=== PATIENT | female | born 1995 | race Caucasian/White ===

== ENCOUNTER 2022-06-13 01:07 | Emergency (ER) | payer OTHER, SELFPAY ==
[2022-06-13 01:13] VITALS: BP 140/93; PULSE 84; RESP 18; TEMP 36.4; O2SAT 97; BMI 27.7
--- NOTE | 2022-06-13 01:17 | CTR_ITS ---
PROCEDURE INFORMATION: Exam: CT Abdomen And Pelvis With Contrast Exam date and time: 06/13/2022 2:49 AM Age: 27 years old Clinical indication: Nausea and vomiting; Abdominal pain; Generalized; Patient HX: Diffuse abd pain with n/v. ; Additional info: Generalized abdominal pain, n/v TECHNIQUE: Imaging protocol: Computed tomography of the abdomen and pelvis with contrast. Radiation optimization: All CT scans at this facility use at least one of these dose optimization techniques: automated exposure control; mA and/or kV adjustment per patient size (includes targeted exams where dose is matched to clinical indication); or iterative reconstruction. Contrast material: OMNI 350; Contrast volume: 100 ml; Contrast route: INTRAVENOUS (IV); COMPARISON: No relevant prior studies available. RADIATION DOSE METRICS: Total DLP (mGy-cm): 386.63 FINDINGS: Lungs: The partially imaged lung bases are clear. Liver: No focal intrahepatic lesions are seen. Gallbladder and bile ducts: No gallbladder wall thickening. No calcified stones. No ductal dilation. Pancreas: No intraparenchymal lesions are seen. No ductal dilation. Spleen: No intraparenchymal lesions are seen. No splenomegaly. Adrenal glands: Normal. No mass. Kidneys and ureters: No solid intraparenchymal soft tissue lesion. No hydronephrosis. Stomach and bowel: No pathologic bowel dilatation. No obstruction. The snell of the distal ileum appear mildly thickened and there is subtle hyperenhancement of the mucosa. Appendix: No evidence of appendicitis. Intraperitoneal space: No free air. A small amount of free fluid is seen within the dependent portion the pelvis, likely physiologic. No abnormal walled-off fluid collection. Vasculature: No abdominal aortic aneurysm. Lymph nodes: Multiple prominent and mildly enlarged mesenteric lymph nodes most pronounced in the upper abdomen and right lower quadrant. Urinary bladder: Unremarkable as visualized. Reproductive: Right ovarian peripherally enhancing cyst measuring up to 1.8 cm in diameter is most compatible with a corpus luteal cyst. Bones/joints: No acute fracture. Soft tissues: Unremarkable. CT/CT abdomen pelvis w con* [id number] IMPRESSION: 1. The snell of the distal ileum appear mildly thickened and there are multiple prominent and mildly enlarged mesenteric lymph nodes. Findings are somewhat nonspecific but are suggestive of mesenteric adenitis and enteritis. Correlate and follow-up as clinically indicated. 2. Other chronic/incidental findings as described above.
--- NOTE | 2022-06-13 01:18 | ED_ITS ---
Documented by User: GÓMEZ Booker 06/13/22 17:38 HPI - Abdominal Pain General: Chief Complaint: Abdominal Pain Stated Complaint: ABD Pain Time Seen by Provider: 06/13/22 01:09 History of Present Illness: Patient is a 27-year-old female who comes to the ED with abdominal pain. Patient says she has been dealing with this kind of abdominal pain for the past couple months. She states that approximately 4 days ago the pain got a lot worse and more severe. Abdominal pain is generalized throughout her entire abdomen. Pain is rated a 7 out of 10. Pain radiates to her back as well. She endorses having nausea and vomiting and states that eating anything makes symptoms worse. She saw her primary care provider a couple days ago and they started her on some dicyclomine and omeprazole. Denies any dysuria, hematuria, fevers. Associated Symptoms: Reports nausea and vomiting; Denies chills, constipation, diarrhea, dysuria, fever(s), hematochezia and hematuria Review of Systems Const: Denies: fever(s), chills or fatigue Eyes: Denies: change in vision or eye discomfort ENMT: Denies: throat pain, odynophagia, nasal discharge or nasal congestion Card: Denies: chest pain, palpitations, edema, swelling of feet/ankles, dyspnea on exertion or orthopnea Resp: Denies: dyspnea, productive cough or non-productive cough GI: Reports: abdominal pain, nausea and vomiting; Denies: diarrhea, constipation or hematochezia : Denies: flank pain, dysuria or hematuria Musc: Denies: neck pain, back pain or extremity swelling Skin/Breast: Denies: rash or new lesions Neuro: Denies: headache(s), numbness in extremities or weakness in extremities [facility] ED PFSH: Medical History (Updated 06/13/22 @ 04:40 by Jaiden Veliz MD) No pertinent family history Surgical History (Updated 06/13/22 @ 01:22 by GÓMEZ Booker) No pertinent past surgical history Physical Exam Const: COMMON NORMALS: patient oriented x3 and alert GENERAL APPEARANCE: cooperative HENMT: COMMON NORMALS: normocephalic HEAD & SCALP: normocephalic MOUTH: Normal oral and palatal mucosa present THROAT: posterior oropharynx normal and uvula midline Neck/C-Spine: COMMON NORMALS: supple GENERAL: Yes normal visual inspection Resp: COMMON NORMALS: normal respiratory effort, No retractions, No use of accessory muscles and clear to auscultation bilaterally AUSCULTATION: clear to auscultation bilaterally Cardio: COMMON NORMALS: regular rate, regular rhythm, S1 normal heart sound present, S2 normal heart sound present, No gallops present (Cardio), No clicks present (Cardio), No murmurs present (Cardio) and Peripheral pulses 2+ throughout RATE: regular rate RHYTHM: regular rhythm HEART SOUNDS: S1 normal heart sound present and S2 normal heart sound present PERIPHERAL PULSES: Peripheral pulses 2+ throughout GI: COMMON NORMALS: Normal to inspection, nondistended, normoactive bowel sounds present, Soft to palpation and no masses PALPATION: Yes Soft to palpation and Yes Tenderness to palpation present (GI) (Generalized tenderness throughout) : COMMON NORMALS: Yes no CVA tenderness BLADDER/KIDNEY EXAM: Yes no CVA tenderness Back/Pelvis: COMMON NORMALS: no CVA tenderness Extremity: COMMON NORMALS: normal to inspection Neuro: COMMON NORMALS: patient oriented x3 SENSORIUM/ORIENTATION: Yes alert GAIT: Yes Normal gait present Skin: GENERAL SKIN EXAM: dry skin Course Vital Signs: Vital signs: Vital Signs Temperature 97.6 F 06/13/22 01:13 Pulse Rate 80 06/13/22 03:00 Respiratory Rate 16 06/13/22 03:00 Blood Pressure 122/74 06/13/22 03:00 Pulse Oximetry 96 06/13/22 03:00 Oxygen Delivery Me thod 06/13/22 01:13 MDM - Abdominal Pain Lab Data 06/13/22 01:35 06/13/22 01:57 Labs/Radiology: Radiology Impressions Abdomen/Pelvis CT 06/13/22 01:17 IMPRESSION: 1. The snell of the distal ileum appear mildly thickened and there are multiple prominent and mildly enlarged mesenteric lymph nodes. Findings are somewhat nonspecific but are suggestive of mesenteric adenitis and enteritis. Correlate and follow-up as clinically indicated. 2. Other chronic/incidental findings as described above. Laboratory Results WBC 6.8 10^3/uL (4.0-10.0) 06/13/22 01:35 RBC 4.24 10^6/uL (4.1-5.3) 06/13/22 01:35 Hgb 13.1 g/dL (11.5-15.3) 06/13/22 01:35 Hct 38.9 % (37.0-47.0) 06/13/22 01:35 MCV 91.7 fl (81-99) 06/13/22 01:35 MCH 30.9 pg (28.0-34.0) 06/13/22 01:35 MCHC 33.7 g/dL (30.0-36.0) 06/13/22 01:35 RDW 12.4 % (12.1-15.1) 06/13/22 01:35 Plt Count 256 10^3/cmm (130-400) 06/13/22 01:35 MPV 10.4 fL (7.4-10.4) 06/13/22 01:35 Neut % (Auto) 63.1 % 06/13/22 01:35 Lymph % (Auto) 27.2 % 06/13/22 01:35 [place] % (Auto) 7.5 % 06/13/22 01:35 Eos % (Auto) 1.6 % 06/13/22 01:35 Baso % (Auto) 0.3 % 06/13/22 01:35 Neut # (Auto) 4.31 10^3/uL (1.8-7.7) 06/13/22 01:35 Lymph # (Auto) 1.9 10^3/uL (0.8-4.8) 06/13/22 01:35 [place] # (Auto) 0.5 10^3/uL (0.2-0.9) 06/13/22 01:35 Eos # (Auto) 0.1 10^3/uL (0.0-0.8) 06/13/22 01:35 Baso # (Auto) 0.0 10^3/uL (0.0-0.1) 06/13/22 01:35 Nucleated RBC % (auto) 0 % 06/13/22 01:35 Nucleated RBCs # 0.0 /100WBC 06/13/22 01:35 Sodium 137 mmol/L (136-145) 06/13/22 01:57 Potassium 3.7 mmol/L (3.5-5.1) 06/13/22 01:57 Chloride 102 mmol/L (98-107) 06/13/22 01:57 Carbon Dioxide 21 mmol/L (22-29) L 06/13/22 01:57 Anion Gap 17.7 (5-19) 06/13/22 01:57 BUN 6 mg/dL (6-20) 06/13/22 01:57 Creatinine 0.6 mg/dL (0.5-0.9) 06/13/22 01:57 GFR Calculation 119.9 mL/min (90-130) 06/13/22 01:57 Glucose 92 mg/dL (65-115) 06/13/22 01:57 Calculated Osmolality 281 mOsm/kg (285-295) L 06/13/22 01:57 Calcium 8.8 mg/dL (8.5-10.5) 06/13/22 01:57 Total Bilirubin 0.2 mg/dL (0.15-1.2) 06/13/22 01:57 AST 18 U/L (0-32) 06/13/22 01:57 ALT 11 U/L (0-33) 06/13/22 01:57 Alkaline Phosphatase 64 U/L (35-105) 06/13/22 01:57 Total Protein 6.8 g/dL (6.6-8.7) 06/13/22 01:57 Albumin 4.0 g/dL (3.5-5.2) 06/13/22 01:57 Globulin 2.8 g/dL (1.3-4.6) 06/13/22 01:57 Lipase 20 U/L (13-60) 06/13/22 01:57 HCG, Qual Negative (Negative) 06/13/22 01:35 Urine Color Yellow (Yellow) 06/13/22 02:04 Urine Appearance Sl hazy (CLEAR) A 06/13/22 02:04 Urine pH 6 (5-7) 06/13/22 02:04 Ur Specific [place] 1.010 (1.005-1.030) 06/13/22 02:04 Urine Protein Neg (Negative) 06/13/22 02:04 Urine Glucose (UA) Norm (Normal) 06/13/22 02:04 Urine Ketones Negative (Negative) 06/13/22 02:04 Urine Blood Neg (Negative) 06/13/22 02:04 Urine Nitrate Negative (Negative) 06/13/22 02:04 Urine Bilirubin Neg (Negative) 06/13/22 02:04 Prot Sulfosalicylic Acd Negative (Negative) 06/13/22 02:04 Urine Urobilinogen Norm mg/dL (Negative) 06/13/22 02:04 Ur Leukocyte Esterase 2+ (Negative) H 06/13/22 02:04 Urine RBC 0-4 /hpf (0-2) H 06/13/22 02:04 Urine WBC Too numerous to cnt /hpf (0-5) H 06/13/22 02:04 Ur Squamous Epith Cells 15-25 /hpf (0-5) H 06/13/22 02:04 Amorphous Sediment Not Reportable 06/13/22 02:04 Urine Bacteria 2+ /hpf (NONE) H 06/13/22 02:04 Discharge Plan Discharge Patient Disposition: Home Clinical Impression: Abdominal pain Condition: Stable Prescriptions: New hydrocodone-acetaminophen 5-325 mg tablet 1 tab PO Q6H PRN (Reason: pain) Qty: 14 0RF ondansetron 4 mg tablet,disintegrating 4 mg PO Q6H PRN (Reason: nausea and vomiting) Qty: 14 0RF Discharge Orders: Discharge ED (Routine); Ordered 06/13/22 Ordered By: Jaiden Veliz Discharge Diet: Advance as tolerated Discharge Activity: Resume usual activity Patient Instructions: Abdominal Pain (ED) Coding Level of Care Code ED Pipe Line Maintenance Supervisor for Chg Fwd Exam Comprehensive Documented by User: Jaiden Veliz MD 06/13/22 04:42 HPI - Abdominal Pain General: Chief Complaint: Abdominal Pain Stated Complaint: ABD Pain Time Seen by Provider: 06/13/22 01:09 [facility] ED PFSH: Medical History (Updated 06/13/22 @ 04:40 by Jaiden Veliz MD) No pertinent family history Surgical History (Updated 06/13/22 @ 01:22 by GÓMEZ Booker) No pertinent past surgical history Course Vital Signs: Vital signs: Vital Signs Temperature 97.6 F 06/13/22 01:13 Pulse Rate 80 06/13/22 03:00 Respiratory Rate 16 06/13/22 03:00 Blood Pressure 122/74 06/13/22 03:00 Pulse Oximetry 96 06/13/22 03:00 Oxygen Delivery Me thod 06/13/22 01:13 MDM - Abdominal Pain Medical Decision Making Patient presented with abdominal pain along with nausea she is well-appearing here blood works normal CT scan shows mesenteric lymphadenitis likely causing her pain she is pain-free at discharge we will prescribe her pain meds and nausea medicine she is to follow-up with PCP and return if worsening. Lab Data 06/13/22 01:35 06/13/22 01:57 Labs/Radiology: Radiology Impressions Abdomen/Pelvis CT 06/13/22 01:17 IMPRESSION: 1. The snell of the distal ileum appear mildly thickened and there are multiple prominent and mildly enlarged mesenteric lymph nodes. Findings are somewhat nonspecific but are suggestive of mesenteric adenitis and enteritis. Correlate and follow-up as clinically indicated. 2. Other chronic/incidental findings as described above. Laboratory Results WBC 6.8 10^3/uL (4.0-10.0) 06/13/22 01:35 RBC 4.24 10^6/uL (4.1-5.3) 06/13/22 01:35 Hgb 13.1 g/dL (11.5-15.3) 06/13/22 01:35 Hct 38.9 % (37.0-47.0) 06/13/22 01:35 MCV 91.7 fl (81-99) 06/13/22 01:35 MCH 30.9 pg (28.0-34.0) 06/13/22 01:35 MCHC 33.7 g/dL (30.0-36.0) 06/13/22 01:35 RDW 12.4 % (12.1-15.1) 06/13/22 01:35 Plt Count 256 10^3/cmm (130-400) 06/13/22 01:35 MPV 10.4 fL (7.4-10.4) 06/13/22 01:35 Neut % (Auto) 63.1 % 06/13/22 01:35 Lymph % (Auto) 27.2 % 06/13/22 01:35 [place] % (Auto) 7.5 % 06/13/22 01:35 Eos % (Auto) 1.6 % 06/13/22 01:35 Baso % (Auto) 0.3 % 06/13/22 01:35 Neut # (Auto) 4.31 10^3/uL (1.8-7.7) 06/13/22 01:35 Lymph # (Auto) 1.9 10^3/uL (0.8-4.8) 06/13/22 01:35 [place] # (Auto) 0.5 10^3/uL (0.2-0.9) 06/13/22 01:35 Eos # (Auto) 0.1 10^3/uL (0.0-0.8) 06/13/22 01:35 Baso # (Auto) 0.0 10^3/uL (0.0-0.1) 06/13/22 01:35 Nucleated RBC % (auto) 0 % 06/13/22 01:35 Nucleated RBCs # 0.0 /100WBC 06/13/22 01:35 Sodium 137 mmol/L (136-145) 06/13/22 01:57 Potassium 3.7 mmol/L (3.5-5.1) 06/13/22 01:57 Chloride 102 mmol/L (98-107) 06/13/22 01:57 Carbon Dioxide 21 mmol/L (22-29) L 06/13/22 01:57 Anion Gap 17.7 (5-19) 06/13/22 01:57 BUN 6 mg/dL (6-20) 06/13/22 01:57 Creatinine 0.6 mg/dL (0.5-0.9) 06/13/22 01:57 GFR Calculation 119.9 mL/min (90-130) 06/13/22 01:57 Glucose 92 mg/dL (65-115) 06/13/22 01:57 Calculated Osmolality 281 mOsm/kg (285-295) L 06/13/22 01:57 Calcium 8.8 mg/dL (8.5-10.5) 06/13/22 01:57 Total Bilirubin 0.2 mg/dL (0.15-1.2) 06/13/22 01:57 AST 18 U/L (0-32) 06/13/22 01:57 ALT 11 U/L (0-33) 06/13/22 01:57 Alkaline Phosphatase 64 U/L (35-105) 06/13/22 01:57 Total Protein 6.8 g/dL (6.6-8.7) 06/13/22 01:57 Albumin 4.0 g/dL (3.5-5.2) 06/13/22 01:57 Globulin 2.8 g/dL (1.3-4.6) 06/13/22 01:57 Lipase 20 U/L (13-60) 06/13/22 01:57 HCG, Qual Negative (Negative) 06/13/22 01:35 Urine Color Yellow (Yellow) 06/13/22 02:04 Urine Appearance Sl hazy (CLEAR) A 06/13/22 02:04 Urine pH 6 (5-7) 06/13/22 02:04 Ur Specific [place] 1.010 (1.005-1.030) 06/13/22 02:04 Urine Protein Neg (Negative) 06/13/22 02:04 Urine Glucose (UA) Norm (Normal) 06/13/22 02:04 Urine Ketones Negative (Negative) 06/13/22 02:04 Urine Blood Neg (Negative) 06/13/22 02:04 Urine Nitrate Negative (Negative) 06/13/22 02:04 Urine Bilirubin Neg (Negative) 06/13/22 02:04 Prot Sulfosalicylic Acd Negative (Negative) 06/13/22 02:04 Urine Urobilinogen Norm mg/dL (Negative) 06/13/22 02:04 Ur Leukocyte Esterase 2+ (Negative) H 06/13/22 02:04 Urine RBC 0-4 /hpf (0-2) H 06/13/22 02:04 Urine WBC Too numerous to cnt /hpf (0-5) H 06/13/22 02:04 Ur Squamous Epith Cells 15-25 /hpf (0-5) H 06/13/22 02:04 Amorphous Sediment Not Reportable 06/13/22 02:04 Urine Bacteria 2+ /hpf (NONE) H 06/13/22 02:04 Discharge Plan Discharge Patient Disposition: Home Clinical Impression: Abdominal pain Condition: Stable Prescriptions: New hydrocodone-acetaminophen 5-325 mg tablet 1 tab PO Q6H PRN (Reason: pain) Qty: 14 0RF ondansetron 4 mg tablet,disintegrating 4 mg PO Q6H PRN (Reason: nausea and vomiting) Qty: 14 0RF Discharge Orders: Discharge ED (Routine); Ordered 06/13/22 Ordered By: Jaiden Veliz Discharge Diet: Advance as tolerated Discharge Activity: Resume usual activity Patient Instructions: Abdominal Pain (ED) Coding Level of Care Code ED Pipe Line Maintenance Supervisor for Terag Fwd Exam Comprehensive
[2022-06-13 01:46] LABS: Basophils % 0.3 %; Eosinophils # 0.1 10^3/uL (0.0-0.8); Eosinophils % 1.6 %; Hematocrit 38.9 % (37.0-47.0); Hemoglobin 13.1 g/dL (11.5-15.3); Lymphocytes # 1.9 10^3/uL (0.8-4.8); Lymphocytes % 27.2 %; Mean Corpuscular HGB Conc 33.7 g/dL (30.0-36.0); Mean Corpuscular Hemoglobin 30.9 pg (28.0-34.0); Mean Corpuscular Volume 91.7 fl (81-99); Mean Platelet Volume 10.4 fL (7.4-10.4); Monocytes # 0.5 10^3/uL (0.2-0.9); Monocytes % 7.5 %; Neutrophils # 4.31 10^3/uL (1.8-7.7); Neutrophils % 63.1 %; Nucleated Red Blood Cells % 0 %; Platelet Count 256 10^3/cmm (130-400); Red Blood Count 4.24 10^6/uL (4.1-5.3); Red Cell Distribution Width 12.4 % (12.1-15.1); White Blood Count 6.8 10^3/uL (4.0-10.0)
[2022-06-13] MEDS: ondansetron 2 mg/ML SDV 2 mL 4 MG IVP (01:46)
[2022-06-13] MEDS: sodium chloride 0.9% 1,000 ML 999 ML IV (01:46)
[2022-06-13] MEDS: morphine 4 mg/mL SDV 1 mL IVP (01:46)
[2022-06-13 02:01] VITALS: BP 115/69; PULSE 71; RESP 18; O2SAT 96
[2022-06-13 02:36] LABS: Alanine Aminotransferase 11 U/L (0-33); Alkaline Phosphatase 64 U/L (35-105); Anion Gap 17.7 (5-19); Aspartate Amino Transferase 18 U/L (0-32); Blood Urea Nitrogen 6 mg/dL (6-20); Calcium 8.8 mg/dL (8.5-10.5); Carbon Dioxide 21 mmol/L (22-29); Chloride 102 mmol/L (98-107); Globulin 2.8 g/dL (1.3-4.6); Glomerular Filtration Rate 119.9 mL/min (90-130); Glucose 92 mg/dL (65-115); Lipase 20 U/L (13-60); Osmolality Calculated 281 mOsm/kg (285-295); Potassium 3.7 mmol/L (3.5-5.1); Sodium 137 mmol/L (136-145); Total Bilirubin 0.2 mg/dL (0.15-1.2); Total Protein 6.8 g/dL (6.6-8.7)
[2022-06-13 02:47] LABS: Bilirubin Urine Neg (Negative); Blood Urine Neg (Negative); Glucose Urine UA Norm (Normal); Ketones Urine Negative (Negative); Leukocyte Esterase Urine 2+ (Negative); Nitrate Urine Negative (Negative); Protein Urine Neg (Negative); Sulfosalicylic Acid Urine Negative (Negative); Urine Appearance SL Hazy (CLEAR); Urine Color Yellow (Yellow); Urobilinogen Urine Norm (Negative); pH Urine 6 (5-7)
[2022-06-13 02:47] LABS: HCG, Serum Qual Negative (Negative)
[2022-06-13 02:48] LABS: Add Urine Microscopic? YES; Bacteria Urine 2+ /hpf; RBC Urine 0-4 /hpf (0-2); Squamous Epithelial Cell Urine 15-25 /hpf (0-5); WBC Urine TOO NUMEROUS TO CNT /hpf (0-5)
[2022-06-13 02:50] LABS: Add Urine Culture? No
[2022-06-13] MEDS: iohexol 350 mg/mL 500 mL Btl (per mL) IV (02:52)
[2022-06-13 03:00] VITALS: BP 122/74; PULSE 80; RESP 16; O2SAT 96
[2022-06-13] MEDS: cefTRIAXone 1,000 MG in sodium chloride 0.9% (plus) 50 ML 100 MG IV (03:06)
[2022-06-13] MEDS: diphenhydrAMINE 50 mg/mL SDV 1mL IVP (03:07)
[2022-06-13] MEDS: metoclopramide 5 mg/mL SDV 2 mL 10 MG IVP (03:10)
== END 2022-06-13 04:58 | disposition home or self-care (01) ==
PROVIDERS: Physician Assistant; Emergency Provider Emergency Medicine
DX: R10.9 Unspecified abdominal pain (principal)
CPT/HCPCS: 74177; 80053; 81001; 83690; 84703; 85025; 96365; 96375; 99285; J0696; J1200; J2270; J2405; J2765; J7030; Q9967